=== PATIENT | male | born 1960 | race African-American/Black ===

== ENCOUNTER 2016-12-15 11:34 | Emergency (ER) | payer SELFPAY ==
--- NOTE | ~2016-12-15 | CT23 ---
[facility] A Service of [facility] & [facility] RADIOLOGY TEXT RESULTS PATIENT: HE HOUSER LOCATION: [facility] : 62 UNIT #: [id number] AGE: [address]: Jose Angel MD SEX: M ORDER DR: [id number] [facility]. [place], [place] [address] [id number] E MR#: [id number] Acc #: [id number] NAME: HE HOUSER : 1960 SEX: M STUDY DATE/TIME: 12/15/2016 13:55 UNIT: [facility] ROOM: STUDY DESCRIPTION: CT Angio Neck Attending Physician: Jose Angel M.D. Ordering Physician: Jose Angel M.D. Primary Care Physician: Primary Care Physician No MEDICAL IMAGING REPORT This report is preliminary unless electronic signature is present EXAM CT angiogram of the neck HISTORY FINDINGS Please see CT angiogram of the head for results. Dictated by... Lorenzo Pichardo M.D. THIS IS AN ELECTRONICALLY VERIFIED REPORT Lorenzo Pichardo M.D. at 12/15/2016 4:31 PM Chidi TD: 12/15/2016 15:28 JOB #: [id number] MEDICAL IMAGING REPORT COPY
--- NOTE | ~2016-12-15 | EKG ---
PATIENT: HE HOUSER UNIT #: [id number] Ventricular Rate: 57 BPM Atrial Rate: 57 BPM P-R Interval: 160 ms QRS Duration: 76 ms Q-T Interval: 398 ms QTC Calculation(Bezet): 387 ms P Pipestem: 40 degrees Calculated R Pipestem: 72 degrees Calculated T Pipestem: 33 degrees Diagnosis Line: Sinus bradycardia Diagnosis Line: Nonspecific ST and T wave abnormality Diagnosis Line: Abnormal ECG Diagnosis Line: No previous ECGs available Diagnosis Line: Confirmed by CAMILA ELLER MD ([id number]) on Diagnosis Line: 12/15/2016 12:14:01 PM INTERPRETING MD: SURI
--- NOTE | ~2016-12-15 | CT17 ---
[facility] A Service of [facility] & [facility] RADIOLOGY TEXT RESULTS PATIENT: HE HOUSER LOCATION: [facility] : 62 UNIT #: [id number] AGE: [address]: Jose Angel MD SEX: M ORDER DR: [id number] [facility] [address] [place], [place] [address] [id number] E MR#: [id number] Acc #: [id number] NAME: HE HOUSER : 1960 SEX: M STUDY DATE/TIME: 12/15/2016 13:55 UNIT: [facility] ROOM: STUDY DESCRIPTION: CT Angio Head Attending Physician: Jose Angel M.D. Ordering Physician: Jose Angel M.D. Primary Care Physician: Primary Care Physician No MEDICAL IMAGING REPORT This report is preliminary unless electronic signature is present EXAM CT scan of the head and neck with contrast with carotid CT angiography HISTORY Diffuse headache and dizziness for the past 2 weeks. TECHNIQUE Axial imaging was obtained from the mid mediastinum to the top of the head with contrast. 100 mL of Isovue was used. CT angiography was performed with thick sliding MIPs, curved planar reformats and 3-D volumetric imaging with surface shaded and volume shaded display. This CT exam was performed with one or more of the following radiation dose reduction techniques: automatic exposure control, adjustment of mA and/or kV according to patient size, and iterative reconstruction. FINDINGS Extravascular structures are remarkable for bilateral thyroid nodules. The nodule on the left measures about 8.0 mm and on the right measures about 11.0 mm. Consider further evaluation with thyroid ultrasound if this has not been evaluated in the past. There is a mucus retention cyst in the right maxillary sinus. The CT angiographic images show wide patency of the great vessels off the arch. In the posterior circulation, two vertebrals are approximately the same size and codominant distally with wide patency. The basilar artery is widely patent. In the carotid circulation no plaque is seen across either carotid bifurcation. No stenosis by NASCET criteria. The distal carotids up through the siphons are widely patent. In the intracranial circulation there is no evidence of aneurysm, vascular STS. [facility] A Service of [facility] & [facility] RADIOLOGY TEXT RESULTS PATIENT: HE HOUSER [id number] 62 UNIT #: [id number] AGE: [address]: Jose Angel MD SEX: M ORDER DR: malformation or major branch vessel occlusion. IMPRESSION Normal CT angiogram. Of note are bilateral thyroid nodules. See above recommendations. STAT * RESULT Dictated by... Lorenzo Pichardo M.D. THIS IS AN ELECTRONICALLY VERIFIED REPORT Lorenzo Pichardo M.D. at 12/15/2016 4:31 PM Chidi TD: 12/15/2016 15:24 JOB #: [id number] MEDICAL IMAGING REPORT COPY
[2016-12-15 11:50] LABS: BASOPHIL% 0.9 % (0-2.5); EOSINOPHIL# 0.1 X10e3 (0-0.7); EOSINOPHIL% 1.7 % (0.0-7.0); HEMOGLOBIN 12.9 gm/dL (13.0-16.0); LYMPHOCYTE# 1.8 X10e3 (1.0-3.5); LYMPHOCYTE% 40.1 % (17.0-45.0); MEAN CELL VOLUME 79.5 FL (83-96); MEAN CORPUSCULAR HEMOGLOBIN 25.7 PG (28-34); MEAN CORPUSCULAR HGB CONC 32.3 g/dL (30-36); MEAN PLATELET VOLUME 7.4 FL (6.5-11.5); MONOCYTE# 0.4 X10e3 (0-1.0); MONOCYTE% 8.9 % (3.0-12.0); NEUTROPHIL# 2.1 X10e3 (1.5-7.1); NEUTROPHIL% 48.4 % (40-75); PLATELET COUNT 215 X10e3 (140-420); RED BLOOD COUNT 5.03 X10e (3.90-5.60); RED CELL DISTRIBUTION WIDTH 13.5 % (11.0-15.5); WHITE BLOOD COUNT 4.4 X10e3 (4.0-10.5)
[2016-12-15 11:51] LABS: DIFF IND NO
[2016-12-15 11:59] LABS: POC - CKMB 1.7 ng/mL (0.0-7.9); POC - TROPONIN <0.05 ng/mL (<=0.05)
[2016-12-15 12:32] LABS: ALBUMIN SERUM 4.2 g/dL (3.5-5.0); ALKALINE PHOSPHATASE 51 U/L (32-92); ALT (SGPT) 16 U/L (10-40); AST (SGOT) 18 U/L (10-42); BILIRUBIN, DIRECT 0.2 mg/dL (0.0-0.2); BILIRUBIN,INDIRECT 1.2 mg/dL (0.0-0.9); BILIRUBIN,TOTAL 1.4 mg/dL (0.2-2.0); BLOOD UREA NITROGEN 13 mg/dL (9-23); BUN/CREATININE RATIO 10.83; CALCIUM SERUM 8.9 mg/dL (8.4-10.2); CARBON DIOXIDE 26 mmol/L (22-31); CHLORIDE 107 mmol/L (100-111); CREATININE SERUM 1.2 mg/dL (0.6-1.4); GLOM FILT RATE Estimated ABOVE60 mL/min (>60); GLUCOSE FASTING 92 mg/dL (70-110); POTASSIUM 4.2 mmol/L (3.5-5.1); PROTEIN TOTAL SERUM 7.2 g/dL (6.0-8.3); SODIUM 139 mmol/L (135-145)
[2016-12-15 14:32] LABS: URINE SOURCE CLEAN CATCH
[2016-12-15 14:43] LABS: URINE APPEARANCE CLEAR; URINE BILIRUBIN NEG (NEG); URINE BLOOD NEG (NEG); URINE COLOR YELLOW; URINE GLUCOSE NEG (NEG); URINE KETONE NEG (NEG); URINE LEUKOCYTE ESTERASE NEG (NEG); URINE NITRATE NEG (NEG); URINE PH 7.5 (5-8); URINE PROTEIN NEG (NEG); URINE SPECIFIC GRAVITY 1.013 (1.003-1.035); URINE UROBILINOGEN 0.2 MG/DL (NEG)
[2016-12-15 14:58] LABS: CULTURE INDICATED? NO
== END 2016-12-15 15:25 | disposition home or self-care (01) ==
LOC: CED 11:34
PROVIDERS: Emergency Medicine
DX: R42 Dizziness and giddiness (principal); Z90.49 Acquired absence of other specified parts of digestive tract
CPT/HCPCS: 36415; 70496; 70498; 80048; 80076; 81003; 82553; 82947; 84484; 85025; 93005; 96360; 99284; Q9967

== ENCOUNTER 2016-12-28 16:30 | Emergency (ER) | payer OTHER ==
--- NOTE | ~2016-12-28 | EKG ---
PATIENT: HE HOUSER UNIT #: [id number] Ventricular Rate: 66 BPM Atrial Rate: 66 BPM P-R Interval: 150 ms QRS Duration: 94 ms Q-T Interval: 354 ms QTC Calculation(Bezet): 371 ms P [place]: 55 degrees Calculated R [place]: 98 degrees Calculated T [place]: -2 degrees Diagnosis Line: Normal sinus rhythm Diagnosis Line: Rightward axis Diagnosis Line: T wave abnormality, consider inferior ischemia Diagnosis Line: Abnormal ECG Diagnosis Line: When compared with ECG of 15-DEC-2016 11:12, Diagnosis Line: T wave inversion now evident in Inferior leads Diagnosis Line: Inverted T waves have replaced nonspecific T wave Diagnosis Line: abnormality in Anterior leads Diagnosis Line: Confirmed by DIANE CEDILLO MD ([id number]) on Diagnosis Line: 12/29/2016 8:18:10 AM INTERPRETING MD: MAMADOU GAYTAN
[2016-12-28 18:12] LABS: URINE SOURCE CLEAN CATCH
[2016-12-28 18:31] LABS: URINE APPEARANCE CLEAR; URINE BILIRUBIN NEG (NEG); URINE BLOOD NEG (NEG); URINE COLOR YELLOW; URINE GLUCOSE NEG (NEG); URINE KETONE NEG (NEG); URINE LEUKOCYTE ESTERASE TRACE (NEG); URINE NITRATE NEG (NEG); URINE PROTEIN NEG (NEG); URINE SPECIFIC GRAVITY 1.021 (1.003-1.035)
[2016-12-28 18:32] LABS: CULTURE INDICATED? NO
[2016-12-28 18:34] LABS: U HYALINE CASTS AUWI 0-2 /[LPF]; URBCS1 AUWI 0-2 /[HPF] (0-2); URINE BACTERIA AUWI NEG (NEGATIVE); URINE SQUAMOUS EPITHELIAL CELL NONE SEEN /[HPF]
[2016-12-28 19:00] LABS: BASOPHIL% 0.6 % (0-2.5); EOSINOPHIL% 0.8 % (0.0-7.0); HEMATOCRIT 41.1 % (38.0-50.0); HEMOGLOBIN 12.8 gm/dL (13.0-16.0); LYMPHOCYTE# 1.7 X10e3 (1.0-3.5); MEAN CELL VOLUME 80.5 FL (83-96); MEAN CORPUSCULAR HEMOGLOBIN 25.1 PG (28-34); MEAN CORPUSCULAR HGB CONC 31.2 g/dL (30-36); MEAN PLATELET VOLUME 7.7 FL (6.5-11.5); MONOCYTE# 0.3 X10e3 (0-1.0); MONOCYTE% 6.1 % (3.0-12.0); NEUTROPHIL# 3.3 X10e3 (1.5-7.1); NEUTROPHIL% 61.5 % (40-75); PLATELET COUNT 226 X10e3 (140-420); RED CELL DISTRIBUTION WIDTH 13.9 % (11.0-15.5); WHITE BLOOD COUNT 5.4 X10e3 (4.0-10.5)
[2016-12-28 19:02] LABS: DIFF IND NO
[2016-12-28 19:50] LABS: ALBUMIN SERUM 4.2 g/dL (3.5-5.0); ALKALINE PHOSPHATASE 54 U/L (32-92); ALT (SGPT) 24 U/L (10-40); AST (SGOT) 25 U/L (10-42); BILIRUBIN, DIRECT 0.2 mg/dL (0.0-0.2); BILIRUBIN,INDIRECT 1.1 mg/dL (0.0-0.9); BILIRUBIN,TOTAL 1.3 mg/dL (0.2-2.0); BLOOD UREA NITROGEN 13 mg/dL (9-23); CALCIUM SERUM 8.7 mg/dL (8.4-10.2); CARBON DIOXIDE 24 mmol/L (22-31); CHLORIDE 106 mmol/L (100-111); GLOM FILT RATE Estimated ABOVE60 mL/min (>60); GLUCOSE FASTING 139 mg/dL (70-110); POTASSIUM 3.8 mmol/L (3.5-5.1); SODIUM 138 mmol/L (135-145)
[2016-12-28 20:35] LABS: POC - CKMB 1.9 ng/mL (0.0-7.9); POC - TROPONIN <0.05 ng/mL (<=0.05)
== END 2016-12-28 21:40 | disposition home or self-care (01) ==
LOC: CED 16:30
PROVIDERS: Emergency Medicine
DX: R51 Headache (principal); R42 Dizziness and giddiness
CPT/HCPCS: 36415; 80048; 80076; 81003; 82553; 84484; 85025; 93005; 96361; 96374; 96375; 99284; J1200; J1885; J2765